=== PATIENT | male | born 2005 | race Two or more races ===

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

== ENCOUNTER 2025-01-23 23:13 | Emergency (ER) | payer MEDICAID, SELFPAY ==
[2025-01-23 23:13] VITALS: BMI 28.5
[2025-01-23 23:28] VITALS: BP 129/77; PULSE 62; RESP 16; TEMP 37.3; O2SAT 98
--- NOTE | 2025-01-23 23:31 | XR_ITS ---
Examination: CT lumbar spine, without contrast. 2-D sagittal reconstructions. 2-D coronal reconstructions. 3-D reconstructions. Date and time of exam: January 24, 2025, 0040 hours INDICATIONS: Low back pain several years worse since last night CTDI: vol (mGy): 24.7 DLP: (mGycm): 749 Technique: Multiple 1.25 mm axial sections of the lumbar spine without intravenous contrast have been obtained. 2-D sagittal and coronal reconstructions have been obtained. 3-D reconstructions have been obtained. Low dose protocols were performed. One or more of the following dose reduction techniques were used; automated exposure control, adjustment of the mA and/or KV according to patient size, use of iterative reconstruction technique. Findings: Adequate bone density. Mild disc narrowing posteriorly L5-S1 No lumbar fracture No spondylolisthesis. No focal lumbar disc protrusion IMPRESSION: No lumbar fracture No focal lumbar disc protrusion
--- NOTE | 2025-01-24 01:53 | PRELIM_ITS ---
CT scan of the lumbar spine without intravenous contrast (axial sections with sagittal and coronal reformats) January 24, 2025 0041 hours Clinical History: back pain No prior study is available for comparison. Findings: There is no fracture or subluxation. The vertebral body height and intervertebral disc spaces are normal. There are small disc bulges at L4-L5 and L5-S1 levels.The soft tissues are unremarkable. Impression: No evidence of fracture, subluxation or significant soft tissue injury. Other findings as described above. Report Electronically Signed By: Cody Cadena 01/24/2025 1:52:32 AM [EST]
--- NOTE | 2025-01-24 02:11 | EDNOTE_ITS ---
ED Back Injury Pain RME/HPI General Chief Complaint: Back Pain/Injury Stated Complaint: LOW BACK PAIN Time Seen by Provider: 01/23/25 23:31 Arrival date/time: 01/23/25 23:13 This is a case of 19-year-old male who has history of chronic low back pain for 1 year came in in the emergency room due to lower back pain for 3 days radiating to the lateral side of the left leg denies any recent injury or trauma denies any numbness weakness tingling sensation incontinence to urine or stool Related Data Previous Rx's ?Medication ?Instructions ?Recorded cyclobenzaprine 10 mg tablet 10 mg PO BID PRN muscle s pasm #10 01/24/25 tabs ibuprofen 800 mg tablet 800 mg PO Q8H PRN pain #20 t abs 01/24/25 lidocaine 5 % topical patch 1 patch topical QDAY PRN p ain #15 01/24/25 (Lidoderm) ea Allergies Allergy/AdvReac Type Severity Reaction Status Date / Time No Known Allergies Allergy Verified 01/23/25 23:16 Review of Systems Review of Systems Systems Reviewed: All systems reviewed, normal except as documented Constitutional Constitutional: Reports system reviewed and no additional complaints, except as documented and Reports as per HPI Cardiovascular Cardiovascular: Reports system reviewed and no additional complaints, except as documented and Reports as per HPI Respiratory Respiratory: Reports system reviewed and no additional complaints, except as documented and Reports as per HPI Gastrointestinal Gastrointestinal: Reports system reviewed and no additional complaints, except as documented and Reports as per HPI Musculoskeletal Musculoskeletal: Reports system reviewed and no additional complaints, except as documented and Reports as per HPI Neurologic Neurologic: Reports system reviewed and no additional complaints, except as documented and Reports as per HPI Past Medical History Past Medical History CARDIAC: Negative Congestive Heart Failure RESPIRATORY: Negative Chronic Obstructive Pulmonary Disease (COPD) GENITOURINARY: Negative Renal Disease ENDOCRINE: Negative Diabetes Mellitus Type 1 or Diabetes Mellitus Type 2 Social History SMOKING STATUS: Never smoker SUBSTANCE USE: does not use ED Exam General General appearance: Present alert, in no apparent distress and other (Patient is awake alert oriented not in distress nontoxic looking well-hydrated well- nourished) Head Head exam: Present atraumatic, normocephalic and normal inspection Eye Eye exam: Present normal appearance, PERRL and EOMI ENT ENT exam: Present normal exam, normal oropharynx and mucous membranes moist Neck Neck exam: Present normal inspection, full ROM and trachea midline; Absent tenderness, meningismus, lymphadenopathy or thyromegaly Chest Chest inspection: Present normal inspection and symmetric chest wall rise; Absent tenderness, rash or abscess Respiratory Respiratory exam: Present normal lung sounds bilaterally; Absent respiratory distress, wheezes, stridor, accessory muscle use or prolonged expiratory phase Cardiovascular Cardiovascular exam: Present regular rate, normal rhythm and normal heart sounds; Absent bradycardia, tachycardia, irregular rhythm or diastolic murmur Abdominal Exam Abdominal exam: Present soft and normal bowel sounds; Absent distention, tenderness, guarding, rebound, rigidity, diminished bowel sounds, hyperactive bowel sounds or hypoactive bowel sounds Extremities Exam Extremities exam: Present normal inspection and full ROM Back Exam Back exam: Present normal inspection, full ROM, tenderness (Mild tenderness lumbar area no crepitation no deformity no redness no cellulitis ROM intact neurovascular intact) and muscle spasm; Absent CVA tenderness (R), CVA tenderness (L), paraspinal tenderness, vertebral tenderness, rashes, sciatic notch tenderness (R), sciatic notch tenderness (L), straight leg raise (R) or straight leg raise (L) Neurological Exam Neurological exam: Present alert, oriented X3, CN II-XII intact, normal gait and reflexes normal; Absent motor sensory deficit Psychiatric Psychiatric exam: Present normal affect and normal mood Skin Skin exam: Present warm, dry, intact, normal color and other (Excellent skin turgor) Course Quality Measures none Orders Category Date Time Status CT lumbar spine wo con Stat Exams 01/23/25 23:31 Taken Dexamethasone Inj [Decadron Inj] Med 01/24/25 02:05 Discontinued 10 mg IM X1 ONE HYDROcodone*/APAP 5/325 [[place] 5/325] Med 01/24/25 02:05 Discontinued 1 tab PO X1 ONE Ketorolac Inj [Toradol Inj] Med 01/24/25 02:05 Discontinued 30 mg IM X1 ONE Vital Signs Vital signs: Vital Signs Temperature 99.1 F 01/23/25 23:28 Pulse Rate 62 01/23/25 23:28 Respiratory Rate 16 01/23/25 23:28 Blood Pressure 129/77 01/23/25 23:28 Pulse Oximetry (%) 98 01/23/25 23:28 Oxygen Delivery Method Room Air 01/23/25 23:28 Oxygen saturation is 98% on room air Back Pain / Injury MDM Narrative MDM Narrative:: This is a case of 19-year-old male who has history of chronic low back pain for 1 year came in in the emergency room due to lower back pain for 3 days radiating to the lateral side of the left leg denies any recent injury or trauma denies any numbness weakness tingling sensation incontinence to urine or stool physical examination patient is awake alert oriented not in distress nontoxic looking well-hydrated well-nourished neurological exam is normal awake alert oriented x 4 no focal deficit GCS 15/15 steady gait noted mild to moderate tenderness on the lumbar area no crepitation no deformity no redness no paraspinal no paravertebral tenderness mild muscle spasm leg raise exam is negative no CVA tenderness steady gait the rest of the physical examination neurological exam is normal and unremarkable patient CT scan of the lumbar showed a bulging disc of the lumbar area patient was given Toradol [place] and dexamethasone which patient condition and pain was resolved patient will follow-up with PCP in 2 days for reevaluation and to be referred to neurosurgeon for DDD lumbar for possible MRI to rule out herniated disc and pain management doctor for pain control for any worsening symptoms or any emergent concern call 911 or go to the nearest ER in the emergency room at the time of exam no signs and symptoms of cauda equina Patient was discharged with comfortable condition walking with stable gait. Patient verbalized no further complains explained diagnosis and answered patient question. Patient is comfortable with the proposed management plan including the need to follow up with his/her primary care physician and any specialist if applicable Discussed patient for any urgent condition or worsening sx, He/She needed to go to emergency room immediately or call 911. Patient acknowledge the responsibility to follow up as instructed and to monitor her/his symptoms. For any persistence of the symptoms for more than 3-5 days return precaution advised. Discussed the result of the test and was given printed discharge instruction Patient data External records reviewed:: [facility] previous records Clinical information provided by:: patient Social determinants that could affect healthcare access:: none Patient has the following chronic illnesses:: None How is presenting disease/condition affected by chronic disease/condition?: no chronic disease Evaluation data The following diagnostics were reviewed and interpreted by me:: radiology exam(s) Lab and/or radiology exams considered but not ordered:: Reviewed Interpretation Summary: Reviewed Medications / Prescriptions Medications or Prescriptions considered but not ordered:: Given Medication administrations:: Medication Administration History Discontinued Medications Hydrocodone Bitart/Acetaminophen (Hydrocodone/[place]ap 5/325 Tablet) 1 tab PO X1 ONE Stop: 01/24/25 02:06 Dexamethasone Sodium Phosphate (Dexamethasone Sod Phos Inj 10 Mg/Ml Vial) 10 mg IM X1 ONE Stop: 01/24/25 02:06 Ketorolac Tromethamine (Ketorolac Inj 60 Mg/2 Ml Vial) 30 mg IM X1 ONE Stop: 01/24/25 02:06 Given Consultations Consultation(s) initiated? (list below): No Diagnosis Differential diagnosis back pain/injury: lumbar radiculopathy, sciatica and strain of lumbar region Most likely diagnosis given after review of the tests above:: Lumbar bulging disc back muscle spasm Admission Indicated Admission indicated?: not indicated Explain why admission is indicated or not indicated:: Not indicated Admission Request Was there a request for admission?: No Admission Attestation Admission request attestation: Not indicated Disposition Plan Disposition Plan: Discharge Discharge Attestation Discharge Attestation: The patient and all family members were given an opportunity to ask questions and understood the discharge instructions. Discharge instructions specifically effects, indications for sooner follow up or return to the emergency department, and the expected course of current diagnosis. Patient condition: Stable Discharge Plan Plan Patient Disposition: HOME (Self Care) Patient condition on transfer: Stable Prescriptions/Referrals Prescriptions/Med Rec: New ibuprofen 800 mg tablet 800 mg PO Q8H PRN (Reason: pain) Qty: 20 0RF cyclobenzaprine 10 mg tablet 10 mg PO BID PRN (Reason: muscle spasm) Qty: 10 0RF lidocaine [Lidoderm] 5 % adhesive patch,medicated 1 patch topical QDAY PRN (Reason: pain) Qty: 15 0RF Rx Instructions: leave on most painful area for up to 12 hrs Discontinued cyclobenzaprine 5 mg tablet 5 mg PO BID PRN (Reason: muscle spasm) Qty: 20 0RF naproxen 500 mg tablet 500 mg PO BID PRN (Reason: pain) Qty: 30 0RF lidocaine 5 % adhesive patch,medicated 1 patch topical QDAY Qty: 15 0RF Rx Instructions: leave on most painful area for up to 12 hrs Referrals: Tam Kohler MD [Primary Care Provider, Family Practice] - In 1 week Problem List Clinical Impression: Back muscle spasm, Bulging lumbar disc Patient/Caregiver Discharge Instructions Education Materials: Common Spine and Disk Problems, ED Back Spasm, No Trauma Additional Instructions: Follow-up with your primary care physician in 2 days for reevaluation and to be referred to neurosurgeon for further evaluation and treatment of lumbar bulging disc for possible MRI to rule out herniated disc and to be referred to pain management doctor for pain control recurrence persistent worsening symptoms or any emergent concerns such as numbness weakness tingling sensation incontinence to urine or stool call 911 or go to the nearest emergency room take your medication as directed aspirin and warm compress as needed for pain no lifting no pulling no pushing more than 5 pounds he is advised Print Language: Yemeni Stand Alone Forms: [employer]ara Award Info., Patient Portal Info Letter PA/PETERSON Supervising Physician SHAYNA/PETERSON Supervising Physician: Dr. Waddell
[2025-01-24] MEDS: HYDROcodone/APAP 5/325 TABLET 1 TAB PO (02:28)
[2025-01-24] MEDS: DEXAMETHASONE SOD PHOS INJ 10 MG/ML VIAL IM (02:28)
[2025-01-24 02:40] VITALS: BP 121/62; PULSE 65; RESP 18; TEMP 36.6; O2SAT 98
== END 2025-01-24 02:40 | disposition home or self-care (01) ==
PROVIDERS: Emergency Provider Emergency Medicine; PCP Family Medicine
DX: M51.360 Other intervertebral disc degeneration, lumbar region with discogenic back pain only (principal)
CPT/HCPCS: 72131; 96372; 99283; J1100; A9270